=== PATIENT | female | born 1950 | race Asian ===

== ENCOUNTER 2019-01-26 01:37 | Emergency (ER) | payer MEDICARE, OTHER ==
[~2019-01-26] VITALS: Ht 149.9 cm; Wt 52.3 kg
[2019-01-26] MEDS ORDERED: AMLO-511 PO (01:49)
[2019-01-26] MEDS ORDERED: LEVO75 PO (01:49)
[2019-01-26] MEDS ORDERED: SODIUM CHLORIDE 0.9% 1,000 ML IV ONE (02:15)
[2019-01-26] MEDS ORDERED: ACETAMINOPHEN 1000 MG/ISO-OSM 100 ML IV ONE (02:15)
[2019-01-26] MEDS ORDERED: METOCLOPRAMIDE HCL 5 MG/ML 2 ML VIAL IVP ONE (02:15)
[2019-01-26] MEDS ORDERED: DiphenhydrAMINE HCL 50 MG/ML VIAL IVP ONE (02:15)
[2019-01-26 06:00] VITALS: BP 106/60
== END 2019-01-26 06:18 | disposition home or self-care (01) ==
LOC: EMS 01:39
DX: R51 Headache (principal); H53.8 Other visual disturbances; I10 Essential (primary) hypertension; E03.9 Hypothyroidism, unspecified; Z98.51 Tubal ligation status; Z88.6 Allergy status to analgesic agent; Z88.8 Allergy status to other drugs, medicaments and biological substances
CPT/HCPCS: 70450; 96365; 96375; 99284; J0131; J1200; J2765; J7030